=== PATIENT | male | born 1980 | race Caucasian/White ===

== ENCOUNTER 2016-11-12 21:08 | Emergency (ER) | payer OTHER ==
[~2016-11-12] VITALS: Ht 185.4 cm; Wt 120.2 kg
[2016-11-12] MEDS ORDERED: NKM (21:21)
--- NOTE | 2016-11-12 21:36 | Emergency Room Report ---
History of Present Illness General Chief Complaint: Palpitations Source: Patient Present Illness HPI Patient reports being at a outdoor event Patient reports drinking red bull and vodka throughout the day he was also outside in the sun Patient reports that he was feeling more anxious and therefore want to calm himself down therefore he smoked marijuana As his palpitation sensation continued patient's heart rate was also in the 90 range on his apple watch Denies any dysuria frequency denies any back or flank pain patient denies any chest pain with palpitation Allergies: Coded Allergies: No Known Allergies (Unverified , 11/12/16) Patient History Past Medical History: see triage record Pertinent Family History: none Reviewed Nursing Documentation: PMH: Agreed, PSxH: Agreed Nursing Documentation-PMH Past Medical History: No Stated History Review of Systems All Other Systems: negative except mentioned in HPI Physical Exam Vital Signs Date Time Temp Pulse Resp B/P Pulse Ox O2 Delivery O2 Flow Rate FiO2 11/12/16 21:16 97.5 96 16 153/88 99 Room Air Sp02 EP Interpretation: reviewed, normal General Appearance: well appearing, no apparent distress Head: normocephalic, atraumatic Eyes: bilateral eye EOMI, bilateral eye PERRL ENT: hearing grossly normal, normal pharynx, TMs + canals normal, uvula midline Neck: full range of motion, supple, no meningismus, no bony tend Respiratory: lungs clear, normal breath sounds, no rhonchi, no respiratory distress, no retraction, no accessory muscle use Cardiovascular #1: normal peripheral pulses, regular rate, rhythm, no edema, no gallop, no JVD, no murmur Gastrointestinal: normal bowel sounds, non tender, soft, no mass, no organomegaly, non-distended, no guarding, no hernia, no pulsatile mass, no rebound Genitourinary: no CVA tenderness Musculoskeletal: normal inspection Neurologic: oriented x3, responsive, 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, motor strength/ tone normal, sensory intact Psychiatric: mood/affect normal Skin: normal color, no rash, warm/dry, palpation normal Lymphatic: normal inspection, no adenopathy Medical Decision Making Diagnostic Impression: Primary Impression: Palpitations ER Course Multiple differentials are considered At this time I want to establish IV with further hydration and baseline blood work how the patient reports that he is extremely afraid of needles And feels that it would worsen his anxiety Patient is observed further on the aids counselor Continues to do well his heart rate has actually improved hemodynamically stable Patient was provided oral medications and after further observation will have initial conservative outpatient trial Rhythm Strip Diag. Results EP Interpretation: yes Rate: 86 Rhythm: NSR, no PVC's, no ectopy Last Vital Signs Date Time Temp Pulse Resp B/P Pulse Ox O2 Delivery O2 Flow Rate FiO2 11/12/16 21:16 97.5 96 16 153/88 99 Room Air Status: improved Disposition: HOME, SELF-CARE Condition: Improved Additional Instructions: Patient is provided with the discharge instructions notified to follow up with primary doctor in the next 2-3 days otherwise return to the er with any worsening symptoms. Please note that this report is being documented using [employer] technology. This can lead to erroneous entry secondary to incorrect interpretation by the dictating instrument. CARMEN CHENEY D.O. November 12, 2016 21:36
[2016-11-12] MEDS ORDERED: LORazepam 1mg tab ORAL ONE (21:45)
[2016-11-12 22:29] VITALS: BP 141/88
[2016-11-12 22:30] VITALS: BP 153/88
== END 2016-11-12 22:30 | disposition home or self-care (01) ==
LOC: EMR 21:28
DX: R00.2 Palpitations (principal); F12.90 Cannabis use, unspecified, uncomplicated
CPT/HCPCS: 99283